=== PATIENT | male | born 1975 | race Caucasian/White ===

== ENCOUNTER 2018-05-10 12:42 | Emergency (ER) | payer MEDICAID, OTHER ==
[~2018-05-10] VITALS: Ht 182.9 cm; Wt 104.5 kg
[~2018-05-10 12:42] MED LIST: ACET-1008 PO; CYCL-1 PO; CYCL-394 PO; DIAZ5TAB PO; HYDR-4353 PO; HYDR-4383 PO; IBUP-1051 PO; IBUP-1984 PO; INDO50CA14 PO; METH4TAB3 PO; METH500T PO; NAPR500T6 PO; ONDA4TAB59 PO
[2018-05-10 13:00] VITALS: BP 158/104
[2018-05-10] MEDS ORDERED: CLIN300C85 PO (13:09)
== END 2018-05-10 13:29 | disposition home or self-care (01) ==
LOC: ER 12:42
DX: K08.89 Other specified disorders of teeth and supporting structures (principal); G89.29 Other chronic pain; Z79.899 Other long term (current) drug therapy
CPT/HCPCS: 99283